=== PATIENT | female | born 1985 | race African-American/Black ===

== ENCOUNTER 2016-12-03 19:44 | Emergency (ER) | payer MEDICAID ==
[~2016-12-03] VITALS: Ht 149.9 cm; Wt 141.0 kg
[~2016-12-03 19:44] MED LIST: IBUPROFEN
[2016-12-03 20:13] VITALS: BP 104/51
== END 2016-12-03 23:00 | disposition left against medical advice (07) ==
LOC: ER 19:44
DX: R10.9 Unspecified abdominal pain (principal); Z53.21 Procedure and treatment not carried out due to patient leaving prior to being seen by health care provider